=== PATIENT | male | born 1990 | race Caucasian/White ===

== ENCOUNTER 2021-06-01 10:27 | Emergency (ER) | payer SELFPAY ==
[2021-06-01 10:39] VITALS: BP 130/73; PULSE 63; TEMP 97.8; BMI 29.2
== END 2021-06-01 13:42 | disposition home or self-care (01) ==
LOC: JERFT 10:27
DX: M26.602 Left temporomandibular joint disorder, unspecified (principal); R59.0 Localized enlarged lymph nodes
CPT/HCPCS: 76536-TC; 99284-25

== ENCOUNTER 2022-11-07 14:03 | Emergency (ER) | payer SELFPAY ==
[2022-11-07 14:14] VITALS: BP 139/85; PULSE 72; RESP 16; TEMP 98.4; BMI 31.2
== END 2022-11-07 17:08 | disposition left against medical advice (07) ==
LOC: JERFT 14:03
DX: T16.2XXA Foreign body in left ear, initial encounter (principal)
CPT/HCPCS: 99282-25